=== PATIENT | male | born 1995 | race Hispanic/Latino ===

== ENCOUNTER 2017-10-15 21:06 | Emergency (ER) | payer OTHER ==
[2017-10-15 21:13] VITALS: BP 141/84; PULSE 110; RESP 16; TEMP 97.6; O2SAT 98
--- NOTE | 2017-10-15 21:23 | ED PDOC ---
HPI: Back Time Seen by Provider: 10/15/17 21:14 Chief Complaint (Nursing): Back Pain Chief Complaint (Provider): Back Pain History Per: Patient History/Exam Limitations: no limitations Onset/Duration Of Symptoms: Days (x2) Current Symptoms Are (Timing): Still Present Additional Complaint(s): 22 year old male with previous medical history of herniated discs, who presents to the emergency department with a complaint of "pinching" lower back pain associated with painful ambulation ongoing for 2 days. Denied any fever, chills , trauma, incontinence, bloody urine, difficulty urinating, abdominal pain, nausea, vomiting, diarrhea, constipation, saddle paresthesia or radiation of pain. Patient was seen at [facility] earlier today for strep throat infection and similar back pain in which he was advised to continue Motrin (last dose at 1800 ) but it did not alleviate pain, thus, prompting patient to ED tonight. PMD: Faisal Fishman MD Past Medical History Reviewed: Historical Data, Nursing Documentation, Vital Signs Vital Signs: Last Vital Signs Temp 97.6 F 10/15/17 21:09 Pulse 110 H 10/15/17 21:09 Resp 16 10/15/17 21:09 BP 141/84 10/15/17 21:09 Pulse Ox 98 10/15/17 21:09 - Medical History Other PMH: herniated disc - Family History Family History: States: Unknown Family Hx - Home Medications Home Medications: Ambulatory Orders Medication Instructions Recorded Cyclobenzaprine [Cyclobenzaprine 10 mg PO Q8 PRN #30 tab 10/15/17 HCl] Lidocaine 5% [Lidoderm] 1 ea TD DAILY PRN #10 patch 10/15/17 - Allergies Allergies/Adverse Reactions: Allergies Allergy/AdvReac Type Severity Reaction Status Date / Time No Known Allergies Allergy Verified 10/15/17 21:13 Review of Systems ROS Statement: Except As Marked, All Systems Reviewed And Found Negative Constitutional: Negative for: Fever, Chills Gastrointestinal: Negative for: Nausea, Vomiting, Abdominal Pain, Diarrhea, Constipation Genitourinary Male: Negative for: Dysuria, Incontinence, Hematuria Musculoskeletal: Positive for: Back Pain (lower pinching with painful ambulation ). Negative for: Other (trauma, saddle paresthesia or radiation of pain) Physical Exam - Reviewed Nursing Documentation Reviewed: Yes Vital Signs Reviewed: Yes - Physical Exam Appears: Positive for: In Acute Distress (mildly painful). Negative for: No Acute Distress Skin: Positive for: Normal Color. Negative for: Rash Gastrointestinal/Abdominal: Positive for: Normal Exam, Soft. Negative for: Tenderness Back: Positive for: Muscle Spasm (bilateral). Negative for: Normal Inspection, L CVA Tenderness, R CVA Tenderness, Vertebral Tenderness Neurologic/Psych: Positive for: Alert (x3), Oriented. Negative for: Motor/ Sensory Deficits - ECG O2 Sat by Pulse Oximetry: 98 (RA) Pulse Ox Interpretation: Normal - Progress ED Course And Treament: Pt. instructed to f/u with PMD for further evaluation and possible further imaging. Medical Decision Making Medical Decision Making: Initial Impression: Back pain Initial Plan: * Flexeril 10mg PO * Lidoderm Scribe Attestation: Documented by Allison Frank, acting as a scribe for Casa Jo PA-C. Provider Scribe Attestation: All medical record entries made by the Scribe were at my direction and personally dictated by me. I have reviewed the chart and agree that the record accurately reflects my personal performance of the history, physical exam, medical decision making, and the department course for this patient. I have also personally directed, reviewed, and agree with the discharge instructions and disposition. Disposition - Clinical Impression Clinical Impression: Low back pain - Patient ED Disposition Is Patient to be Admitted: No - Disposition Referrals: [facility] [Outside] Disposition Time: 21:10 Condition: STABLE Additional Instructions: Follow up with PMD for further evaluation. Return to ED immediately for any concerns or questions. Prescriptions: Cyclobenzaprine [Cyclobenzaprine HCl] 10 mg PO Q8 PRN #30 tab PRN Reason: Muscle Spasm Lidocaine 5% [Lidoderm] 1 ea TD DAILY PRN #10 patch PRN Reason: pain Instructions: Acute Low Back Pain (ED) Forms: [facility] (Sinhala), [facility] ED School/Work Excuse
[2017-10-15] MEDS ORDERED: Lidocaine 5% Patch TD STA (21:27)
[2017-10-15] MEDS ORDERED: Lidocaine 5% Patch TD ONE (21:29)
== END 2017-10-15 21:41 | disposition home or self-care (01) ==
LOC: H.ER 21:06
DX: M54.5 Low back pain (principal)